=== PATIENT | male | born 1980 | race Caucasian/White ===

== ENCOUNTER 2017-11-04 13:03 | Emergency (ER) | payer MEDICAID ==
[~2017-11-04] VITALS: Ht 180.3 cm; Wt 98.4 kg
[2017-11-04 13:12] VITALS: BP 131/90
[2017-11-04 13:52] LABS: ABSOLUTE BASOPHILS 0.1 thou/uL (0.0-0.2); ABSOLUTE EOSINOPHILS 0.1 thou/uL (0.0-0.7); ABSOLUTE LYMPHOCYTES 1.3 thou/uL (0.8-5.3); ABSOLUTE MONOCYTES 1.3 thou/uL (0.0-1.2); ABSOLUTE NEUTROPHILS 8.8 thou/uL (1.6-8.1); BASOPHILS 0.8 %; EOSINOPHILS 0.8 %; HEMATOCRIT 42.8 % (42.0-52.0); HEMOGLOBIN 14.5 gm/dL (14.0-18.0); LYMPHOCYTES 11.6 %; MCH 30.3 pg (26.0-34.0); MCHC 33.8 g/dL (28.0-37.0); MCV 89.6 fL (80.0-100.0); MONOCYTES 10.9 %; MPV 9.3 fl. (7.2-11.1); NUCLEATED RBCS 0 /100WBC; PLATELET COUNT* 257 thou/uL (150-400); POLYS 75.9 %; RBC 4.78 mil/uL (4.50-6.00); WBC 11.6 thou/uL (4.0-11.0)
[2017-11-04 13:59] LABS: ANION GAP 8 mmol/L (7-16); BUN 12 mg/dL (7-18); CHLORIDE 99 mmol/L (98-107); CO2 28 mmol/L (21-32); CREATININE 1.4 mg/dL (0.6-1.3); GLUCOSE 95 mg/dL (70-99); POTASSIUM 3.3 mmol/L (3.5-5.1); SODIUM 135 mmol/L (136-145)
[2017-11-04 14:00] LABS: APTT 29.2 Seconds (25.0-31.3); PROTIME 10.1 Seconds (9.20-11.50)
[2017-11-04 14:06] LABS: ALBUMIN 3.8 g/dL (3.4-5.0); ALKALINE PHOSPHATASE 96 U/L (46-116); SGOT 12 U/L (15-37); SGPT 24 U/L (30-65); TOTAL BILIRUBIN 1.4 mg/dL (<0.1-1.0); TOTAL PROTEIN 8.2 g/dL (6.4-8.2); TROPONIN-I LEVEL <0.06 ng/mL (<0.06)
[2017-11-04] MEDS ORDERED: XARELTO1 EACH PO (17:13)
[2017-11-04] MEDS ORDERED: XARELTO15 MG PO (17:24)
[2017-11-04 17:40] VITALS: BP 153/87
--- NOTE | 2017-11-06 12:45 | EKG ---
[place] [address] ELECTROCARDIOGRAM REPORT Name: ROMEL DUCKWORTH Room: [facility]#: [id number] Admission: 11/04/17 Attend Phys: Discharge: 11/04/17 Date of : 76 Report #: [id number] THIS REPORT FOR: //name// [facility] ED Test Date: 2017-11-04 Test Time: 13:35:31 Pat Name: ROMEL DORADOSOBEIAD Department: Room: [facility] Gender: Culinary Director: CASSIE : 1980 Requested By: Jadyn Artis Order Number: [id number] MD: Pepe Martinez Measurements Intervals [place] Rate: 66 P: 69 W[place]: 141 QRS: 13 QRSD: 91 T: -4 QT: 415 QTc: 435 Interpretive Statements Sinus rhythm Probable left atrial enlargement Probable left ventricular hypertrophy No previous ECG available for comparison Electronically Signed On 11-06-2017 12:45:11 CDT by Pepe Martinez [email or web address] <ELECTRONICALLY SIGNED> By: Pepe Martinez MD, [facility] 11/06/17 1245 D: [id number] Pepe Martinez MD, FACC /EPI
== END 2017-11-04 17:42 | disposition home or self-care (01) ==
LOC: M.ERS 13:03 → M.TBA-ER 17:05 → M.ERS 17:42
PROVIDERS: Nurse Practitioner Family
DX: I10 Essential (primary) hypertension (principal); I26.99 Other pulmonary embolism without acute cor pulmonale; J90 Pleural effusion, not elsewhere classified